=== PATIENT | male | born 2000 | race Caucasian/White ===

== ENCOUNTER 2025-06-29 00:09 | Emergency (ER) | payer SELFPAY ==
[~2025-06-29] VITALS: Ht 170.2 cm; Wt 68.0 kg
[2025-06-29 00:11] VITALS: O2SAT 98
[2025-06-29] MEDS: KETOROLAC 30MG/ML VIAL IM ONE (01:37)
[2025-06-29 02:23] LABS: BASOPHILS % 0.8 % (0.0-2.0); EOSINOPHILS % 1.2 % (0.0-5.0); HEMATOCRIT. 42.7 % (42.0-52.0); HEMOGLOBIN. 14.7 g/dL (14.0-18.0); LYMPHOCYTES % 30.3 % (20.0-50.0); MEAN PLATELET VOLUME 8.5 fl (7.4-10.4); MONOCYTES % 8.5 % (2.0-8.0); NEUTROPHILS % 59.2 % (40.0-76.0); PLATELET 299 x1000/uL (130-400); RED BLOOD CELL COUNT 4.84 mill/uL (4.7-6.1); RED CELL DISTRIBUTION WIDTH 12.4 % (11.6-14.6)
[2025-06-29 02:30] LABS: CREATININE 1.0 mg/dL (0.6-1.3)
[2025-06-29 02:31] LABS: TROPONIN I HIGH SENSITIVITY < 4 ng/L (3.0-53); UREA NITROGEN BLOOD 15 mg/dL (9-23)
[2025-06-29 02:32] LABS: ASPARTATE AMINOTRANSFERASE 22 IU/L (<34)
[2025-06-29 02:33] LABS: BILIRUBIN TOTAL 0.8 mg/dL (0.1-1.0); PROTEIN TOTAL 8.2 g/dL (6.0-8.3)
[2025-06-29] MEDS ORDERED: IBUP-1455 MT (02:48)
[2025-06-29 03:25] VITALS: BP 111/70; PULSE 56; RESP 14; TEMP 36.7; O2SAT 100
== END 2025-06-29 03:28 | disposition home or self-care (01) ==
LOC: ER 00:09
DX: R07.9 Chest pain, unspecified (principal); R06.02 Shortness of breath; Z88.0 Allergy status to penicillin
CPT/HCPCS: 80053; 85025; 85379; 84484; 36415; 71045; 93005; 96372; 99285; J1885; Z7610